=== PATIENT | male | born 1945 | race Caucasian/White ===

== ENCOUNTER 2021-10-20 20:20 | Inpatient (IN) | payer MEDICARE, OTHER ==
[~2021-10-20] VITALS: Ht 172.7 cm; Wt 107.8 kg
[2021-10-20] MEDS ORDERED: SODIUM CHLORIDE 0.9% 1,000 ML IV ONE (21:00)
[2021-10-20] MEDS ORDERED: ACETAMINOPHEN 325 MG TAB PO ONE (21:00)
[2021-10-20] MEDS ORDERED: PIPERACILLIN-TAZO 4.5GM 100 ML IV ONE (21:00)
[2021-10-20] MEDS ORDERED: VANCOMYCIN PER PHARMACY 0 MG IV SCH (21:00)
[2021-10-20 21:16] LABS: Eosinophils # (auto) 0.1 10 ^3/uL (0-0.8); Lymphocytes # (auto) 0.3 10 ^3/uL (0.4-5.4); Monocytes # (auto) 0.2 10 ^3/uL (0-1.3); White Blood Cell 6.5 10^3/uL (4.4-10.8)
[2021-10-20 21:25] LABS: Basophils # (auto) 0 10 ^3/uL (0-0.2); Basophils % (auto) 0.3 % (0.0-2.0); Hematocrit 44.7 % (41.0-53.0); Hemoglobin 15.3 g/dL (13.5-17.5); Lymphocytes % (auto) 4.9 % (10.0-50.0); Mean Corpuscular Hemoglobin 32.8 pg (28.0-32.0); Mean Corpuscular Hgb Conc. 34.2 g/dL (32.0-36.0); Mean Corpuscular Volume 95.9 fL (80.0-100.0); Monocytes % (auto) 3.5 % (0.0-12.0); Neutrophils # (auto) 5.9 10 ^3/uL (1.6-8.6); Neutrophils % (auto) 90.3 % (37.0-80.0); Red Blood Cells 4.66 10^6/uL (4.5-5.90); Red Cell Distribution Width 14.7 % (11.8-14.3)
[2021-10-20 21:32] LABS: Albumin 3.4 g/dL (3.4-5.0); Calcium 8.9 mg/dL (8.5-10.1); Magnesium 2.4 mg/dL (1.6-2.6); Potassium 3.8 mmol/L (3.5-5.1)
[2021-10-20 21:35] LABS: Bilirubin, Total 1.1 mg/dL (0.2-1.0); Lactic Acid w/Reflex 2.2 mmol/L (0.4-2.0); Total Protein 7.7 g/dL (6.4-8.2)
[2021-10-20] MEDS ORDERED: VANCOMYCIN 1GM/250ML 250 ML IV ONE (22:00)
[2021-10-20] MEDS ORDERED: ALBUMIN 5% 250 ML IV ONE (23:15)
[2021-10-20] MEDS ORDERED: MORPHINE SULFATE INJECTION 2 MG/ML SYRG IV PRN (23:15)
[2021-10-20] MEDS ORDERED: ACETAMINOPHEN 325 MG TAB PO PRN (23:15)
[2021-10-20] MEDS ORDERED: HYDROcodone-ACET 5/325MG TAB PO PRN (23:15)
[2021-10-20] MEDS ORDERED: ONDANSETRON HCL 4 MG/2 ML VIAL IV PRN (23:15)
[2021-10-20] MEDS ORDERED: NITROGLYCERIN 0.4 MG SL TAB SL PRN (23:15)
[2021-10-20] MEDS: ENOXAPARIN SOD 40 MG/0.4 ML SYRINGE SC SCH (23:26)
[2021-10-20 23:51] LABS: Urine Bacteria NONE SEEN /hpf (None Seen); Urine Blood Negative /uL (Negative); Urine Specific Gravity 1.021 (1.001-1.035); Urine WBC <1 /hpf (0 - 3)
[2021-10-21 01:10] VITALS: BP 100/53
[2021-10-21 01:20] VITALS: BP 100/53
[2021-10-21] MEDS: SODIUM CHLORIDE 0.9% 1,000 ML IV SCH ×2 (01:34→12:42)
[2021-10-21] MEDS ORDERED: APIX5TAB PO (04:37)
[2021-10-21] MEDS ORDERED: GABA300C10 PO (04:37)
[2021-10-21] MEDS ORDERED: ALBUMIN 5% 250 ML IV ONE (06:15)
[2021-10-21 06:32] LABS: Basophils # (auto) 0 10 ^3/uL (0-0.2); Basophils % (auto) 0.2 % (0.0-2.0); Eosinophils # (auto) 0.1 10 ^3/uL (0-0.8); Eosinophils % (auto) 1.9 % (0.0-7.0); Hemoglobin 11.3 g/dL (13.5-17.5); Lymphocytes # (auto) 0.6 10 ^3/uL (0.4-5.4); Lymphocytes % (auto) 14.1 % (10.0-50.0); Mean Corpuscular Hgb Conc. 34.4 g/dL (32.0-36.0); Mean Corpuscular Volume 95.9 fL (80.0-100.0); Monocytes # (auto) 0.3 10 ^3/uL (0-1.3); Monocytes % (auto) 8.4 % (0.0-12.0); Neutrophils # (auto) 3.1 10 ^3/uL (1.6-8.6); Neutrophils % (auto) 75.4 % (37.0-80.0); Red Blood Cells 3.44 10^6/uL (4.5-5.90); Red Cell Distribution Width 14.3 % (11.8-14.3); White Blood Cell 4.1 10^3/uL (4.4-10.8)
[2021-10-21 06:44] LABS: Albumin 2.6 g/dL (3.4-5.0); BUN/Creatinine Ratio 19.3; Calcium 7.7 mg/dL (8.5-10.1); Potassium 3.4 mmol/L (3.5-5.1)
[2021-10-21 06:49] LABS: Bilirubin, Total 1.1 mg/dL (0.2-1.0); Total Protein 5.5 g/dL (6.4-8.2)
[2021-10-21 09:00] VITALS: BP 144/86
[2021-10-21] MEDS: PANTOPRAZOLE 40 MG TAB PO SCH (09:41)
[2021-10-21] MEDS: levoFLOXacin 500MG 100 ML IV SCH (09:41)
[2021-10-21 13:00] VITALS: BP 93/49
[2021-10-21 17:00] VITALS: BP 91/40
[2021-10-21] MEDS ORDERED: PRIMIDONE 50 MG TAB PO SCH (22:00)
[2021-10-21] MEDS ORDERED: MONTELUKAST SODIUM 10 MG TAB PO SCH (22:00)
[2021-10-21] MEDS: MAGNESIUM OXIDE 400 MG TAB PO SCH (22:50)
[2021-10-21] MEDS: GABAPENTIN 300 MG CAP PO SCH (22:51)
[2021-10-21] MEDS: ENOXAPARIN SOD 40 MG/0.4 ML SYRINGE SC SCH (22:52)
[2021-10-21 23:56] VITALS: BP 105/53
[2021-10-22 05:19] VITALS: BP 106/51
[2021-10-22 05:44] LABS: Basophils # (auto) 0 10 ^3/uL (0-0.2); Basophils % (auto) 0.3 % (0.0-2.0); Eosinophils # (auto) 0.3 10 ^3/uL (0-0.8); Eosinophils % (auto) 5.7 % (0.0-7.0); Hematocrit 35.6 % (41.0-53.0); Hemoglobin 12.3 g/dL (13.5-17.5); Lymphocytes # (auto) 0.9 10 ^3/uL (0.4-5.4); Lymphocytes % (auto) 19.2 % (10.0-50.0); Mean Corpuscular Hgb Conc. 34.7 g/dL (32.0-36.0); Mean Corpuscular Volume 95.3 fL (80.0-100.0); Monocytes # (auto) 0.6 10 ^3/uL (0-1.3); Monocytes % (auto) 12.1 % (0.0-12.0); Neutrophils # (auto) 3.1 10 ^3/uL (1.6-8.6); Neutrophils % (auto) 62.7 % (37.0-80.0); Nucleated Red Blood Cells % 0.1 %; Red Blood Cells 3.73 10^6/uL (4.5-5.90); Red Cell Distribution Width 14.6 % (11.8-14.3); White Blood Cell 4.9 10^3/uL (4.4-10.8)
[2021-10-22 05:55] LABS: Potassium 3.6 mmol/L (3.5-5.1)
[2021-10-22 06:01] LABS: BUN/Creatinine Ratio 21.4; Calcium 8.7 mg/dL (8.5-10.1)
[2021-10-22 08:00] VITALS: BP 102/57
[2021-10-22] MEDS: levoFLOXacin 500MG 100 ML IV SCH (09:29)
[2021-10-22] MEDS: GABAPENTIN 300 MG CAP PO SCH (09:29)
[2021-10-22] MEDS: PANTOPRAZOLE 40 MG TAB PO SCH (09:30)
[2021-10-22] MEDS: MAGNESIUM OXIDE 400 MG TAB PO SCH (09:30)
[2021-10-22] MEDS ORDERED: SERTRALINE HCL 50 MG TAB PO SCH (10:00)
[2021-10-22 11:30] VITALS: BP_SYST 104; BP_SYST 95; BP_SYST 98; BP_DIAS 60; BP_DIAS 64; BP_DIAS 86
[2021-10-22 12:00] VITALS: BP 100/59
[2021-10-22] MEDS ORDERED: CEPH-509 PO (13:15)
[2021-10-22 13:21] VITALS: BP 100/59
[2021-10-22 16:00] VITALS: BP 108/65
== END 2021-10-22 19:00 | disposition home health service (06) | DRG 603 ==
LOC: EDBD 20:20 → ER 20:22 → TELE 23:05 → TELE-WESTW 23:42
PROVIDERS: ADMIT Nurse Practitioner; ATTEND Internal Medicine
DX: L03.116 Cellulitis of left lower limb (principal); D68.69 Other thrombophilia; R53.1 Weakness; E11.40 Type 2 diabetes mellitus with diabetic neuropathy, unspecified; E78.5 Hyperlipidemia, unspecified; F32.A Depression, unspecified; F41.9 Anxiety disorder, unspecified; I48.0 Paroxysmal atrial fibrillation; Z20.822 Contact with and (suspected) exposure to COVID-19; E87.6 Hypokalemia; J45.909 Unspecified asthma, uncomplicated; R58 Hemorrhage, not elsewhere classified; S80.12XA Contusion of left lower leg, initial encounter; W18.39XA Other fall on same level, initial encounter; Y93.89 Activity, other specified; Z88.0 Allergy status to penicillin; Z91.81 History of falling; Y92.89 Other specified places as the place of occurrence of the external cause; Y99.8 Other external cause status
CPT/HCPCS: 36415; 70450; 71045; 80048; 80053; 80320; 81001; 83605; 83735; 84484; 85025; 87040; 93005; 93970; 96365; 96367; 96368; 96372; 97116; 97163; 97530; 99291; G0378; J1956; J2543

== ENCOUNTER 2023-09-03 12:49 | Inpatient (IN) | payer MEDICARE ==
[~2023-09-03] VITALS: Ht 167.6 cm; Wt 121.8 kg
[~2023-09-03 12:49] MED LIST: APIX5TAB PO; CEPH-509 PO; GABA-1250 PO
[2023-09-03 14:00] LABS: Hematocrit 41.6 % (41.0-53.0); Hemoglobin 13.9 g/dL (13.5-17.5); Mean Corpuscular Hemoglobin 30.9 pg (28.0-32.0); Mean Corpuscular Hgb Conc. 33.3 g/dL (32.0-36.0); Mean Corpuscular Volume 92.8 fL (80.0-100.0); Red Blood Cells 4.49 10^6/uL (4.5-5.90); Red Cell Distribution Width 13.7 % (11.8-14.3); White Blood Cell 15.6 10^3/uL (4.4-10.8)
[2023-09-03 14:03] LABS: Basophils % (manual) 0 (0.0-2.0); Blast Cells 0; Eosinophils % (manual) 0 (0-7); Metamyelocytes % 0; Promyelocytes % 0; Reactive Lymphocytes 0
[2023-09-03 14:26] LABS: Alanine Aminotransferase 31 U/L (7-40); Albumin 3.6 g/dL (3.2-4.8); Alkaline Phosphatase 107 U/L (46-116); Anion Gap 8 (5-15); Aspartate Aminotransferase 26 U/L (13-40); BUN/Creatinine Ratio 17.3 (10.0-20.0); Bilirubin, Total 2.4 mg/dL (0.2-1.0); Blood Urea Nitrogen 19 mg/dL (9-23); Calcium 8.6 mg/dL (8.7-10.4); Carbon Dioxide 27 mmol/L (20-30); Chloride 102 mmol/L (98-107); Glucose 183 mg/dL (74-106); Potassium 3.7 mmol/L (3.5-5.1); Sodium 137 mmol/L (136-145); Total Protein 6.3 g/dL (5.7-8.2)
[2023-09-03 14:51] LABS: Band Neutrophils % (manual) 22; Lymphocytes % (manual) 2 (10.0-50.0); Monocytes % (manual) 4 (0-12); Myelocytes % 3; Platelet Estimate Adequate
[2023-09-04] VITALS (16 sets, daily range): BP systolic 91–112; BP diastolic 49–63; PULSE 60–86; RESP 16–26; TEMP 97.4–98.5; O2SAT 90–96
[2023-09-04] MEDS ORDERED: ACETAMINOPHEN 325 MG TAB PO PRN (00:15)
[2023-09-04] MEDS ORDERED: HYDROcodone-ACET 5/325MG TAB PO PRN (00:15)
[2023-09-04] MEDS ORDERED: MORPHINE SULFATE INJ 2 MG/ml SYRG IV PRN (00:15)
[2023-09-04] MEDS ORDERED: DOCUSATE SOD 100 MG CAP PO PRN (00:15)
[2023-09-04] MEDS ORDERED: ONDANSETRON HCL 4 MG/2 ML VIAL IV PRN (00:15)
[2023-09-04] MEDS ORDERED: NITROGLYCERIN 0.4 MG SL TAB SL PRN (00:15)
[2023-09-04] MEDS ORDERED: cefTRIAXone 1GM/50ML D5W 50 ML IV ONE (00:30)
[2023-09-04] MEDS: methylPREDNISolone SOD SUCC 125 MG/2 ML VL IM ONE (01:38)
[2023-09-04] MEDS: levoFLOXacin 500MG 100 ML IV ONE (01:41)
[2023-09-04] MEDS: SODIUM CHLORIDE 0.9% 1,000 ML IV SCH (01:43)
[2023-09-04] MEDS: methylPREDNISolone SOD SUCC 40 MG/ML VL IV SCH (05:57)
[2023-09-04] MEDS ORDERED: METH-1181 PO (08:26)
[2023-09-04] MEDS ORDERED: cefTRIAXone 1GM/50ML D5W 50 ML IV SCH (09:00)
[2023-09-04 09:23] LABS: Basophils # (auto) 0 10 ^3/uL (0-0.2); Basophils % (auto) 0.2 % (0.0-2.0); Eosinophils # (auto) 0 10 ^3/uL (0-0.8); Eosinophils % (auto) 0.1 % (0.0-7.0); Hematocrit 43.2 % (41.0-53.0); Hemoglobin 14.2 g/dL (13.5-17.5); Lymphocytes # (auto) 0.7 10 ^3/uL (0.4-5.4); Lymphocytes % (auto) 4.6 % (10.0-50.0); Mean Corpuscular Hemoglobin 31.2 pg (28.0-32.0); Mean Corpuscular Volume 94.6 fL (80.0-100.0); Monocytes # (auto) 1.1 10 ^3/uL (0-1.3); Monocytes % (auto) 7.3 % (0.0-12.0); Neutrophils # (auto) 13.4 10 ^3/uL (1.6-8.6); Neutrophils % (auto) 87.8 % (37.0-80.0); Nucleated Red Blood Cells % 0.1 %; Red Blood Cells 4.56 10^6/uL (4.5-5.90); Red Cell Distribution Width 14.1 % (11.8-14.3); White Blood Cell 15.3 10^3/uL (4.4-10.8)
[2023-09-04] MEDS: APIXABAN 5 MG TAB PO SCH (09:24)
[2023-09-04] MEDS: ENOXAPARIN SOD 40 MG/0.4 ML SYRINGE SC SCH (09:24)
[2023-09-04 09:27] LABS: Alanine Aminotransferase 29 U/L (7-40); Albumin 3.7 g/dL (3.2-4.8); Alkaline Phosphatase 149 U/L (46-116); Anion Gap 6 (5-15); Aspartate Aminotransferase 32 U/L (13-40); Blood Urea Nitrogen 22 mg/dL (9-23); Carbon Dioxide 27 mmol/L (20-30); Chloride 101 mmol/L (98-107); Glucose 230 mg/dL (74-106); Potassium 3.9 mmol/L (3.5-5.1); Sodium 134 mmol/L (136-145)
[2023-09-04 09:28] LABS: Bilirubin, Total 1.9 mg/dL (0.2-1.0); Total Protein 6.6 g/dL (5.7-8.2)
[2023-09-04] MEDS: IPRATROPIUM BROM 0.5 MG/2.5ML INH SOL NEB SCH (13:56)
[2023-09-04] MEDS: ALBUTEROL SULF 2.5 MG/0.5ML(0.5%) NEB SOLN NEB SCH (13:56)
[2023-09-04] MEDS ORDERED: SERT-206 PO (16:06)
[2023-09-04] MEDS ORDERED: HYDR12.59 PO (16:06)
[2023-09-04] MEDS ORDERED: MONT-8 PO (16:06)
[2023-09-04] MEDS ORDERED: PRIM50TA5 PO (16:06)
[2023-09-04 21:35] LABS: COVID19 ANTIGEN SOFIA FIA NEGATIVE (NEGATIVE); Rapid Influenza A Negative (Negative); Rapid Influenza B Negative (Negative)
[2023-09-04] MEDS: guaiFENesin-DM 100/10mg/5ml SYR PO PRN (22:12)
[2023-09-04] MEDS: levoFLOXacin 500MG 100 ML IV SCH (22:14)
[2023-09-05] VITALS (17 sets, daily range): BP systolic 92–115; BP diastolic 48–63; PULSE 59–74; RESP 16–25; TEMP 97.4–98; O2SAT 90–100
[2023-09-05 07:24] LABS: Basophils # (auto) 0 10 ^3/uL (0-0.2); Basophils % (auto) 0.1 % (0.0-2.0); Eosinophils # (auto) 0 10 ^3/uL (0-0.8); Hematocrit 36.6 % (41.0-53.0); Hemoglobin 12.1 g/dL (13.5-17.5); Lymphocytes # (auto) 0.3 10 ^3/uL (0.4-5.4); Lymphocytes % (auto) 2.6 % (10.0-50.0); Mean Corpuscular Hemoglobin 31.2 pg (28.0-32.0); Mean Corpuscular Volume 94.8 fL (80.0-100.0); Monocytes # (auto) 0.6 10 ^3/uL (0-1.3); Neutrophils # (auto) 11.6 10 ^3/uL (1.6-8.6); Neutrophils % (auto) 92.3 % (37.0-80.0); Nucleated Red Blood Cells % 0.1 %; Red Blood Cells 3.86 10^6/uL (4.5-5.90); Red Cell Distribution Width 13.6 % (11.8-14.3); White Blood Cell 12.6 10^3/uL (4.4-10.8)
[2023-09-05 08:58] LABS: Alanine Aminotransferase 35 U/L (7-40); Albumin 3.4 g/dL (3.2-4.8); Alkaline Phosphatase 115 U/L (46-116); Anion Gap 9 (5-15); Aspartate Aminotransferase 39 U/L (13-40); BUN/Creatinine Ratio 25.9 (10.0-20.0); Blood Urea Nitrogen 30 mg/dL (9-23); Calcium 8.8 mg/dL (8.7-10.4); Carbon Dioxide 23 mmol/L (20-30); Chloride 101 mmol/L (98-107); Sodium 133 mmol/L (136-145)
[2023-09-05 08:59] LABS: Bilirubin, Total 0.8 mg/dL (0.2-1.0); Total Protein 6.2 g/dL (5.7-8.2)
[2023-09-05 09:10] LABS: Glucose 423 mg/dL (74-106)
[2023-09-05 09:17] LABS: Cholesterol 92 mg/dL (< 200); HDL Cholesterol 16 mg/dL (40-59); Triglycerides 102 mg/dL (< 150)
[2023-09-05 09:18] LABS: LDL Cholesterol 61 mg/dL (< 100)
[2023-09-05] MEDS ORDERED: DEXTROSE (50%) 50ML SYRG IV PRN (09:30)
[2023-09-05] MEDS: INSULIN LANTUS (GLARGINE) 1 /0.01ml (100units/ml) SC ONE (09:58)
[2023-09-05] MEDS: InsuLIN REG 1unit/0.01ml Soln (100units/ml) SC ONE (10:03)
[2023-09-05] MEDS: ACCU-CHEK COMFORT CURVE STRIP VI SCH (12:10)
[2023-09-05] MEDS: InsuLIN REG 1unit/0.01ml Soln (100units/ml) SC SCH ×2 (12:14→22:24)
[2023-09-06] VITALS (21 sets, daily range): BP systolic 93–115; BP diastolic 33–67; PULSE 51–79; RESP 18–22; TEMP 97.2–98; O2SAT 90–98
[2023-09-06 09:25] LABS: Hepatitis B Surface Antigen Negative (Negative)
[2023-09-06 09:47] LABS: Hepatitis C Antibody Negative (Negative)
[2023-09-06] MEDS ORDERED: DEXTROSE (50%) 50ML SYRG IV PRN (23:45)
[2023-09-07] VITALS (20 sets, daily range): BP systolic 99–136; BP diastolic 42–65; PULSE 51–85; RESP 16–23; TEMP 97.4–98.6; O2SAT 93–100
[2023-09-07] MEDS: ACCU-CHEK COMFORT CURVE STRIP VI SCH (01:04)
[2023-09-07] MEDS: InsuLIN REG 1unit/0.01ml Soln (100units/ml) SC SCH (01:10)
[2023-09-07] MEDS: INSULIN LANTUS (GLARGINE) 1 /0.01ml (100units/ml) SC SCH (21:21)
[2023-09-08] VITALS (14 sets, daily range): BP systolic 123–147; BP diastolic 55–67; PULSE 52–81; RESP 16–22; TEMP 97.7–98.1; O2SAT 94–99
[2023-09-08] MEDS: levoFLOXacin 500 MG TAB PO SCH (10:00)
[2023-09-08] MEDS ORDERED: PRED20TA2 PO ×2 (11:22→11:31)
[2023-09-08] MEDS ORDERED: LEVO500T91 PO ×2 (11:22→11:31)
== END 2023-09-08 15:24 | disposition home or self-care (01) | DRG 871 ==
LOC: EDBD 12:49 → EDUNIT# 12:49 → ER 12:49 → TELE 09-04 00:15 → TELE-WESTW 09-04 00:15
PROVIDERS: ADMIT Nurse Practitioner Family; ATTEND Family Medicine
PROC: 5A09357 Assistance with Respiratory Ventilation, Less than 24 Consecutive Hours, Continuous Positive Airway Pressure (ICD-10-PCS; principal; 2023-09-04)
PROC: 5A09357 Assistance with Respiratory Ventilation, Less than 24 Consecutive Hours, Continuous Positive Airway Pressure (ICD-10-PCS; 2023-09-05)
PROC: 5A09357 Assistance with Respiratory Ventilation, Less than 24 Consecutive Hours, Continuous Positive Airway Pressure (ICD-10-PCS; 2023-09-06)
PROC: 5A09357 Assistance with Respiratory Ventilation, Less than 24 Consecutive Hours, Continuous Positive Airway Pressure (ICD-10-PCS; 2023-09-07)
PROC: 5A09357 Assistance with Respiratory Ventilation, Less than 24 Consecutive Hours, Continuous Positive Airway Pressure (ICD-10-PCS; 2023-09-08)
DX: A41.9 Sepsis, unspecified organism (principal); J18.9 Pneumonia, unspecified organism; J96.01 Acute respiratory failure with hypoxia; J44.1 Chronic obstructive pulmonary disease with (acute) exacerbation; Z68.41 Body mass index [BMI] 40.0-44.9, adult; J44.0 Chronic obstructive pulmonary disease with (acute) lower respiratory infection; I48.19 Other persistent atrial fibrillation; E66.01 Morbid (severe) obesity due to excess calories; E11.9 Type 2 diabetes mellitus without complications; G47.33 Obstructive sleep apnea (adult) (pediatric); E78.00 Pure hypercholesterolemia, unspecified; Z79.01 Long term (current) use of anticoagulants; Z86.73 Personal history of transient ischemic attack (TIA), and cerebral infarction without residual deficits; Z88.0 Allergy status to penicillin; Z91.199 Patient's noncompliance with other medical treatment and regimen due to unspecified reason
CPT/HCPCS: 36415; 36600; 71045; 80053; 80061; 82805; 82962; 83036; 83880; 84484; 85007; 85025; 85027; 86803; 87040; 87340; 87426; 87804; 93306; 94640; 94660; 96365; 96372; 99291; G0378; J1815; J1956